=== PATIENT | male | born 1980 | race Caucasian/White ===

== ENCOUNTER 2022-04-09 22:07 | Emergency (ER) | payer BC, OTHER ==
[2022-04-09 22:40] LABS: BASOPHILS # (AUTO) 0.1 10^3/uL (0.0-0.1); BASOPHILS % (AUTO) 1 % (0-10); EOSINOPHILS # (AUTO) 0.2 10^3/uL (0.0-0.3); EOSINOPHILS % (AUTO) 2 % (0-10); HEMATOCRIT 39 % (40-54); HEMOGLOBIN 13.5 g/dL (13.3-17.7); LYMPHOCYTES % (AUTO) 21 % (12-44); MEAN CORPUSCULAR HEMOGLOBIN 31 pg (25-34); MEAN CORPUSCULAR HGB CONC 35 g/dL (32-36); MEAN CORPUSCULAR VOLUME 89 fL (80-99); MEAN PLATELET VOLUME 8.3 fL (9.0-12.2); MONOCYTES # (AUTO) 0.7 10^3/uL (0.0-1.0); MONOCYTES % (AUTO) 7 % (0-12); NEUTROPHILS # (AUTO) 6.5 10^3/uL (1.8-7.8); NEUTROPHILS % (AUTO) 70 % (42-75); PLATELET COUNT 383 10^3/uL (130-400); WHITE BLOOD COUNT 9.3 10^3/uL (4.3-11.0)
[2022-04-09] MEDS ORDERED: NS IV 1000 ML 1,000 ML IV STA (22:45)
[2022-04-09] MEDS ORDERED: ACETAMINOPHEN 325 MG TABLET PO STA (22:45)
[2022-04-09 23:07] LABS: ALBUMIN 4.1 GM/DL (3.2-4.5); BILIRUBIN,TOTAL 0.4 MG/DL (0.1-1.0); CALCIUM 8.9 MG/DL (8.5-10.1); CREATININE SERUM 1.17 MG/DL (0.60-1.30); TOTAL PROTEIN 7.4 GM/DL (6.4-8.2)
--- NOTE | 2022-04-09 23:17 | ED Lower Extremity ---
General Chief Complaint: Lower Extremity Stated Complaint: FIEVER/RIGHT KNEE PROBLEMS Source: patient, spouse History of Present Illness Date Seen by Provider: Apr 09, 2022 Time Seen by Provider: 22:14 Initial Comments 42-year-old male presenting with complaints of fever of 101F at home tonight. He and his became concerned that he was septic because he had an elevated temperature and pain and swelling to his right leg. The pain and swelling has been going on for few weeks now but he had seen an orthopedic doctor today who did an ultrasound of his leg. 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 They told him if he has a fever he should go be seen in the emergency department. Apparently 20 years ago he had an injury to his right knee and became septic. He denies having any penetrating trauma or lacerations on the right leg or knee. He also denies having cough, sore throat, congestion, abdominal pain, nausea, vomiting, pain with urination. He does not feel like his right leg is a more swollen or red than it has been. He is waiting on prior authorization for an MRI to evaluate his meniscus and his knee. Onset: this evening Method of Injury: unknown Modifying Factors: Worse With Movement Allergies and Home Medications Allergies Coded Allergies: Penicillins (Verified Allergy, Unknown, 04/09/22) cephalexin (Verified Allergy, Unknown, 04/09/22) Patient Home Medication List Home Medication List Reviewed: Yes Review of Systems Constitutional: chills, fever (this evening) EENTM: no symptoms reported Respiratory: no symptoms reported Cardiovascular: no symptoms reported Gastrointestinal: no symptoms reported Genitourinary: no symptoms reported Musculoskeletal: see HPI Skin: see HPI Psychiatric/Neurological: No Symptoms Reported Past Dbudrdp-[id number]-Swihwt Hx Patient Social History Tobacco Use?: No Use of E-Cig and/or Vaping dev: No Immunizations Up To Date Influenza Vaccine Up-to-Date: No; Not Current Past Medical History Surgeries: Yes Orthopedic (bilateral knee surgery) Physical Exam Vital Signs Vital Signs - First Documented 04/09/22 22:20 Temp 37.6 Pulse 105 Resp 18 B/P (MAP) 123/79 (94) Pulse Ox 98 Capillary Refill : Height, Weight, BMI Height: '" Weight: lbs. oz. kg; BMI Method: General Appearance: WD/WN, no apparent distress HEENT: PERRL/EOMI, pharynx normal Neck: non-tender, full range of motion, supple, normal inspection Cardiovascular: normal peripheral pulses, tachycardia Respiratory: chest non-tender, lungs clear, normal breath sounds, no respiratory distress, no accessory muscle use Gastrointestinal: normal bowel sounds, non tender, soft, no pulsatile mass Legs: right leg swelling (he has 1+ edema/swelling to RLE from just above his knee down to his foot) Knees: right knee pain, right knee soft tissue tenderness, right knee swelling Neurologic/Tendon: normal sensation, normal motor functions Neurologic/Psychiatric: alert, oriented x 3 Skin: normal color, warm/dry Progress/Results/Core Measures Results/Orders Lab Results Laboratory Tests Test 04/09/22 22:29 04/09/22 22:54 04/09/22 23:50 Range/Units White Blood Count 9.3 4.3-11.0 10^3/uL Red Blood Count 4.39 4.30-5.52 10^6/uL Hemoglobin 13.5 13.3-17.7 g/dL Hematocrit 39 L 40-54 % Mean Corpuscular Volume 89 80-99 fL Mean Corpuscular Hemoglobin 31 25-34 pg Mean Corpuscular Hemoglobin Concent 35 32-36 g/dL Red Cell Distribution Width 12.2 10.0-14.5 % Platelet Count 383 130-400 10^3/uL Mean Platelet Volume 8.3 L 9.0-12.2 fL Immature Granulocyte % (Auto) 0 % Neutrophils (%) (Auto) 70 42-75 % Lymphocytes (%) (Auto) 21 12-44 % Monocytes (%) (Auto) 7 0-12 % Eosinophils (%) (Auto) 2 0-10 % Basophils (%) (Auto) 1 0-10 % Neutrophils # (Auto) 6.5 1.8-7.8 10^3/uL Lymphocytes # (Auto) 2.0 1.0-4.0 10^3/uL Monocytes # (Auto) 0.7 0.0-1.0 10^3/uL Eosinophils # (Auto) 0.2 0.0-0.3 10^3/uL Basophils # (Auto) 0.1 0.0-0.1 10^3/uL Immature Granulocyte # (Auto) 0.0 0.0-0.1 10^3/uL Sodium Level 139 135-145 MMOL/L Potassium Level 4.0 3.6-5.0 MMOL/L Chloride Level 101 98-107 MMOL/L Carbon Dioxide Level 27 21-32 MMOL/L Anion Gap 11 5-14 MMOL/L Blood Urea Nitrogen 15 7-18 MG/DL Creatinine 1.17 0.60-1.30 MG/DL Estimat Glomerular Filtration Rate 81 BUN/Creatinine Ratio 13 Glucose Level 163 H 70-105 MG/DL Lactic Acid Level 1.27 0.50-2.00 MMOL/L Calcium Level 8.9 8.5-10.1 MG/DL Corrected Calcium 8.8 8.5-10.1 MG/DL Total Bilirubin 0.4 0.1-1.0 MG/DL Aspartate Amino Transf (AST/SGOT) 15 5-34 U/L Alanine Aminotransferase (ALT/SGPT) 17 0-55 U/L Alkaline Phosphatase 123 40-136 U/L C-Reactive Protein 2.04 H <0.50 MG/DL Total Protein 7.4 6.4-8.2 GM/DL Albumin 4.1 3.2-4.5 GM/DL Influenza Type A (RT-PCR) Not Detected Not Detecte Influenza Type B (RT-PCR) Not Detected Not Detecte SARS-CoV-2 RNA (RT-PCR) Not Detected Not Detecte Urine Color YELLOW Urine Clarity CLEAR Urine pH 7.5 5-9 Urine Specific [place] 1.010 L 1.016-1.022 Urine Protein NEGATIVE NEGATIVE Urine Glucose (UA) NEGATIVE NEGATIVE Urine Ketones NEGATIVE NEGATIVE Urine Nitrite NEGATIVE NEGATIVE Urine Bilirubin NEGATIVE NEGATIVE Urine Urobilinogen 1.0 < = 1.0 MG/DL Urine Leukocyte Esterase NEGATIVE NEGATIVE Urine RBC (Auto) NEGATIVE NEGATIVE Urine RBC 0-2 /HPF Urine WBC NONE /HPF Urine Squamous Epithelial Cells RARE /HPF Urine Crystals NONE /LPF Urine Bacteria NEGATIVE /HPF Urine Casts NONE /LPF Urine Mucus NEGATIVE /LPF Urine Culture Indicated NO My Orders Orders - MARLEEN MENENDEZ MD Cbc With Automated Diff (04/09/22 22:28) Comprehensive Metabolic Panel (04/09/22 22:28) Blood Culture (04/09/22 22:28) Ua Culture If Indicated (04/09/22 22:28) Ed Iv/Invasive Line Start (04/09/22 22:28) Crp Fs (04/09/22 22:28) Lactic Acid Analyzer (04/09/22 22:28) Ns Iv 1000 Ml (Sodium Chloride 0.9%) (04/09/22 22:45) Acetaminophen Tablet/Caplet (Tylenol T (04/09/22 22:45) Covid 19 Inhouse Test (04/09/22 22:45) Influenza A And B By Pcr (04/09/22 22:45) Vital Signs/I&O 04/09/22 22:20 Temp 37.6 Pulse 105 Resp 18 B/P (MAP) 123/79 (94) Pulse Ox 98 Progress Progress Note #1: Progress Note Try to reassure patient and spouse that I did not see signs of sepsis on his exam. Without any break in the skin or puncture to his leg or knee it would be unusual for him to develop sepsis just all of a sudden. Will obtain basic labs including blood cultures and lactic acid. Administer normal saline 1 L IV fluid bolus for hydration, Tylenol 650 mg p.o. for complaint of elevated temperature at home. Since he does not have a focal source for fever we will also swab for COVID and flu. Differential diagnosis includes viral syndrome, cellulitis, upper respiratory infection, septic joint Progress Note #2: Progress Note CBC does not show elevated white blood cell count. His chemistry panel was stable without acute significant abnormality other than he had elevated CRP at 2 . His lactic acid was normal at 1.2. COVID and influenza came back negative. His urinalysis also was negative for signs of infection. Reassured patient and spouse and advised to watch for sources of infection. Blood cultures are still pending at this point. If he has further signs of infection or something more focal then return or check with the clinic. At this time there is no indication to place him on an antibiotic as he has no specific bacterial source. Will await cultures and continue with symptomatic care for now. Departure Impression Primary Impression: Fever in adult Additional Impression: Pain and swelling of right lower extremity Disposition: HOME, SELF-CARE Condition: Stable Departure-Patient Inst. Decision time for Depature: 00:18 Referrals: VAUGHN ENAMORADO MD (PCP/Family) Primary Care Physician Patient Instructions: Shoemaker's Cyst (DC), Fever, Adult ED, Knee Pain ED Add. Discharge Instructions: Stay well hydrated and get plenty of rest. Treat fever over 101 F with acetaminophen and/or ibuprofen. Try to rest your leg and elevate it to help with swelling and pain Follow up with clinic for continued symptoms/concerns All discharge instructions reviewed with patient and/or family. Voiced understanding. MARLEEN MENENDEZ MD Apr 09, 2022 23:17
[2022-04-09 23:56] LABS: BILIRUBIN,URINE NEGATIVE (NEGATIVE); CLARITY,URINE CLEAR; COLOR,URINE YELLOW; GLUCOSE, URINE (UA) NEGATIVE (NEGATIVE); KETONES,URINE NEGATIVE (NEGATIVE); LEUKOCYTE ESTERASE ,URINE NEGATIVE (NEGATIVE); NITRITE,URINE NEGATIVE (NEGATIVE); PH,URINE 7.5 (5-9); PROTEIN,URINE NEGATIVE (NEGATIVE)
[2022-04-10 00:04] LABS: BACTERIA,URINE NEGATIVE /HPF; RBC,URINE 0-2 /HPF; SQUAMOUS EPITHELIAL CELL,UR RARE /HPF
[2022-04-10 00:31] VITALS: BP 123/79
== END 2022-04-10 00:31 | disposition home or self-care (01) ==
LOC: ER FS 22:13
DX: R50.9 Fever, unspecified (principal); M25.561 Pain in right knee; M79.89 Other specified soft tissue disorders; R79.82 Elevated C-reactive protein (CRP); Z28.310 Unvaccinated for COVID-19; Z20.822 Contact with and (suspected) exposure to COVID-19
CPT/HCPCS: 36415; 80053; 81000; 83605; 85025; 86141; 87040; 87636